=== PATIENT | male | born 1950 | race African-American/Black ===

== ENCOUNTER 2018-03-18 14:50 | Emergency (ER) | payer SELFPAY ==
[2018-03-18 15:07] VITALS: TEMP 97.8; BMI 29.6
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
[2018-03-18] MEDS ORDERED: CYCLOBENZAPRINE HCL 5 MG TABLET PO ONE (16:13)
[2018-03-18] MEDS ORDERED: LIDOCAINE 5% TOPICAL PATCH TP ONE (16:13)
[2018-03-18] MEDS ORDERED: LIDOCAINE 5% TOPICAL PATCH ONE (16:19)
[2018-03-18] MEDS ORDERED: CYCLOBENZAPRINE HCL 10 MG TABLET (FP) ONE (16:19)
[2018-03-18] MEDS ORDERED: ACETAMINOPHEN 325 MG TABLET (FP) PO ONE (16:20)
[2018-03-18] MEDS ORDERED: ACETAMINOPHEN 325 MG TABLET (FP) ONE (16:22)
[2018-03-18 19:14] VITALS: BP 126/78; PULSE 72
[2018-03-18] MEDS ORDERED: LIDOCAINE PATCH REMOVAL MC SCH (22:00)
--- NOTE | 2018-03-19 11:43 | EKG ---
Test Reason : Blood Pressure : / mmHG Vent. Rate : 066 BPM Atrial Rate : 066 BPM P-R Int : 158 ms QRS Dur : 094 ms QT Int : 376 ms P-R-T Axes : 052 -32 019 degrees QTc Int : 394 ms NORMAL SINUS RHYTHM LEFT AXIS DEVIATION ST ELEVATION, CONSIDER EARLY REPOLARIZATION, PERICARDITIS, OR INJURY ABNORMAL ECG NO PREVIOUS ECGS AVAILABLE Confirmed by MARISABEL CARUSO MD ([id number]) on 03/19/2018 11:43:27 AM Referred By: Confirmed By:MARISABEL CARUSO MD
== END 2018-03-18 19:34 | disposition home or self-care (01) ==
LOC: JER 14:50
DX: Z04.1 Encounter for examination and observation following transport accident (principal); M54.6 Pain in thoracic spine; M79.604 Pain in right leg; R07.89 Other chest pain; V09.29XA Pedestrian injured in traffic accident involving other motor vehicles, initial encounter; Y92.414 Local residential or business street as the place of occurrence of the external cause; Y93.01 Activity, walking, marching and hiking; Y99.8 Other external cause status
CPT/HCPCS: 71046-TC-FY; 71120-TC-FY; 72170-TC-FY; 73552-TC-RT-FY; 73590-TC-RT-FY; 73610-TC-RT-FY; 93005; 93010; 99281-25